=== PATIENT | female | born 1970 | race Asian ===

== ENCOUNTER 2017-02-04 12:51 | Outpatient (CLI) | payer OTHER ==
--- NOTE | 2017-02-04 17:25 | MMO ---
BILATERAL MAMMOGRAMS: HISTORY: Screening mammography. COMPARISON: 06/01/2013 and 06/13/2015. FINDINGS: Heterogeneously dense fibroglandular tissue is again demonstrated. There is no dominant mass or alberto picious calcification. The study was evaluated with the assistance of computer-aided detection. IMPRESSION: BI-RADS category 1. Negative. Suggest routine followup. POS: ANDREIA
== END 2017-02-04 12:52 | disposition home or self-care (01) ==
LOC: MAMMO 12:51
PROVIDERS: ATTEND Obstetrics & Gynecology
DX: Z12.31 Encounter for screening mammogram for malignant neoplasm of breast (principal)
CPT/HCPCS: 77067; G0202

== ENCOUNTER 2018-02-17 15:04 | Outpatient (CLI) | payer OTHER | END 2018-02-17 15:05 | disposition home or self-care (01) | LOC: BICMAMMO 15:04 | PROVIDERS: ATTEND Family Medicine | DX: Z12.31 Encounter for screening mammogram for malignant neoplasm of breast (principal) | CPT/HCPCS: 77063; 77067 ==

== ENCOUNTER 2019-06-01 12:36 | Outpatient (CLI) | payer OTHER ==
--- NOTE | 2019-06-01 13:38 | MMO ---
Bilateral MAMMO Bilat Screen [facility]. CLINICAL HISTORY: Patient is 48 years old and is seen for screening. VIEWS: The views performed were: . FILMS COMPARED: The present examination has been compared to a prior imaging study performed at [facility] on 02/17/2018. This study has been interpreted with the assistance of computer-aided detection. MAMMOGRAM FINDINGS: The breasts are heterogeneously dense, which could obscure a lesion on mammography. There are no suspicious masses, suspicious calcifications, or new areas of architectural distortion. IMPRESSION: THERE IS NO MAMMOGRAPHIC EVIDENCE OF MALIGNANCY. A ROUTINE FOLLOW-UP MAMMOGRAM IN 1 YEAR IS RECOMMENDED. THE RESULTS OF THIS EXAM WERE SENT TO THE PATIENT. ACR BI-RADS Category 1 - Negative MAMMOGRAPHY NOTE: 1. A negative mammogram report should not delay a biopsy if a dominant of clinically suspicious mass is present. 2. Approximately 10% to 15% of breast cancers are not detected by mammography. 3. Adenosis and dense breasts may obscure an underlying neoplasm. Reported by: NUBIA PRINCE MD Electonically Signed: [id number]
== END 2019-06-01 12:37 | disposition home or self-care (01) ==
LOC: BICMAMMO 12:36
PROVIDERS: ATTEND Family Medicine
DX: Z12.31 Encounter for screening mammogram for malignant neoplasm of breast (principal)
CPT/HCPCS: 77063; 77067

== ENCOUNTER 2019-06-03 07:10 | Outpatient (CLI) | payer OTHER ==
[2019-06-03] MEDS ORDERED: Iopamidol 370 76% 100 ML VIAL ONE (10:00)
--- NOTE | 2019-06-03 10:32 | CT ---
CT OF THE ABDOMEN AND PELVIS WITHOUT AND WITH CONTRAST: COMPARISON: None. HISTORY: Hematuria. TECHNIQUE: Multiple contiguous axial images were obtained in a CT of the abdomen and pelvis without and with IV contrast. Post contrast images were obtained in nephrographic and expiratory phases. Sagittal and c oronal reformats were performed. FINDINGS: There are bilateral nonobstructing calcifications in both kidneys. The calcification in the left kid sam appears to represent a collecting system calcification measuring approximately 5 mm in size. The calcification in the right kidney is in the dependent aspect of a cystic structure measuring 2.0 cm in size. This calcification measures 8 mm in greatest dimension. This likely represents a calyceal diverticulum containing a calcification as this cystic structure slightly fills with contrast on the post contrast images but is separate from the normal renal collecting system. The liver, gallbladder, adrenal glands, spleen, and pancreas are unremarkable. No free air, free flu id, or stranding changes are seen in the abdomen or pelvis. An IUD is seen in the uterus. The large and small bowel are unremarkable. The appendix is normal. No abdominal or pelvic lymphadenopathy a re seen. The osseous structures, visualized inferior thorax, and abdominal wall soft tissues are unremarkable. IMPRESSION: 1. 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 2. Small nonobstructing left renal calcification. POS: C
== END 2019-06-03 07:11 | disposition home or self-care (01) ==
LOC: CT 07:10
PROVIDERS: ATTEND Urology
DX: N20.0 Calculus of kidney (principal); R31.0 Gross hematuria; N28.89 Other specified disorders of kidney and ureter
CPT/HCPCS: 74178; Q9967

== ENCOUNTER 2020-07-18 13:21 | Outpatient (CLI) | payer OTHER | END 2020-07-18 13:22 | disposition home or self-care (01) | LOC: BICMAMMO 13:21 | PROVIDERS: ATTEND Family Medicine | DX: Z13.820 Encounter for screening for osteoporosis (principal); Z78.0 Asymptomatic menopausal state; M85.852 Other specified disorders of bone density and structure, left thigh | CPT/HCPCS: 77080 ==

== ENCOUNTER 2020-08-01 14:46 | Outpatient (CLI) | payer OTHER ==
[~2020-08-01 14:46] MED LIST: Iopamidol 370 76% 100 ML VIAL ONE
== END 2020-08-01 14:47 | disposition home or self-care (01) ==
LOC: CT 14:46
PROVIDERS: ATTEND Urology
DX: N20.0 Calculus of kidney (principal); R31.0 Gross hematuria; N28.89 Other specified disorders of kidney and ureter
CPT/HCPCS: 74178; Q9967

== ENCOUNTER 2020-08-24 07:38 | Outpatient (CLI) | payer OTHER ==
[2020-08-24 10:09] LABS: Mean Corpuscular HGB CONC 33.2 g/dL (32.0-36.0); Mean Corpuscular Volume 90.1 fl (81.6-98.3); Mean Platelet Volume 8.9 fl (7.4-10.4); Platelet Count 303 10x3/uL (150-450); RBC Distribution Width 12.9 % (11.5-14.5); Red Blood Cell (RBC) Count 4.34 10x6/uL (3.90-5.03); White Blood Cell (WBC) Count 7.9 10x3/uL (3.5-10.5)
[2020-08-24 10:28] LABS: Anion Gap 13 mmol/L (10-20); BUN (Urea Nitrogen) 12 mg/dL (9.8-20.1); Calc. Creatinine Clearance 0 mL/min (70-130); Calcium 9.4 mg/dL (7.8-10.44); Carbon Dioxide 27 mmol/L (22-29); Chloride 102 mmol/L (98-107); Glucose 83 mg/dL (70-105); Potassium 4.4 mmol/L (3.5-5.1); Sodium 138 mmol/L (136-145)
[2020-08-24 10:30] LABS: PTT 26.5 sec (22.0-33.0)
[2020-08-24 17:53] LABS: SARS-CoV-2 PCR by NAA Not Detected (NotDetected)
== END 2020-08-24 07:39 | disposition home or self-care (01) ==
LOC: LABBT 07:38
PROVIDERS: ATTEND Urology
DX: Z01.818 Encounter for other preprocedural examination (principal); N39.0 Urinary tract infection, site not specified; N20.0 Calculus of kidney; R31.29 Other microscopic hematuria; R31.0 Gross hematuria; N28.89 Other specified disorders of kidney and ureter; Z20.822 Contact with and (suspected) exposure to COVID-19
CPT/HCPCS: 80048; 85027; 85610; 85730; 87635; 93005; 93010; U0003; U0005

== ENCOUNTER 2020-08-29 05:54 | Day surgery (SDC) | payer OTHER ==
[2020-08-28 12:33] VITALS: BMI 23.5
[2020-08-29] MEDS ORDERED: Levofloxacin 500 mg/D5W 100 ml Premix Bag ONE (06:38)
[2020-08-29] MEDS ORDERED: Fentanyl 100 MCG/2 ML VIAL ONE (06:47)
[2020-08-29] MEDS ORDERED: Midazolam HCl 2 mg/2 ml Vial ONE (06:47)
[2020-08-29] MEDS ORDERED: Iothalamate Meglumine 60% 50 ML VIAL FS ONE (06:56)
[2020-08-29] MEDS ORDERED: diphenhydrAMINE 50 MG/ML VIAL ONE (07:09)
[2020-08-29] MEDS ORDERED: Hydrocortisone Sod Succ/PF 100 mg/2 ml Vial ONE (07:19)
[2020-08-29] MEDS ORDERED: Hydrocortisone Sod Succ/PF 100 mg/2 ml Vial IVP SCH (07:30)
[2020-08-29] MEDS ORDERED: Lidocaine 2% Jelly 5 ML TUBE ONE (08:30)
[2020-08-29] MEDS ORDERED: PHENYLEPHRINE-NS 100 MCG/ML 10 ML SYRINGE ONE (08:40)
[2020-08-29] MEDS ORDERED: Glycopyrrolate 0.2 MG/ML 5 ML SYRINGE ONE (08:40)
[2020-08-29] MEDS ORDERED: Dexamethasone 20 MG/5 ML VIAL ONE (08:40)
[2020-08-29] MEDS ORDERED: Ondansetron PF 4 MG/2 ML Vial ONE (08:40)
[2020-08-29] MEDS ORDERED: PROPOFOL 200 MG/20 ML VIAL ONE (08:40)
[2020-08-29] MEDS ORDERED: Lidocaine 1% PF 5 ML VIAL ONE (08:40)
[2020-08-29] MEDS ORDERED: Ketorolac Tromethamine 30 MG/ML VIAL ONE (08:40)
[2020-08-29] MEDS ORDERED: Rocuronium Bromide 10 MG/ML (10ML VIAL) ONE (08:40)
[2020-08-29] MEDS ORDERED: Ioversol 68 % 50 ML VIAL ONE (08:52)
[2020-08-29] MEDS ORDERED: Phenazopyridine HCl 100 MG TAB ONE (10:25)
[2020-08-29] MEDS ORDERED: Oxybutynin 5 MG TAB ONE (10:25)
== END 2020-08-29 10:45 | disposition home or self-care (01) ==
LOC: SDC 05:54
PROVIDERS: ATTEND Urology
PROC: 0T768DZ Dilation of Right Ureter with Intraluminal Device, Via Natural or Artificial Opening Endoscopic (ICD-10-PCS; principal; 2020-08-29)
DX: N20.0 Calculus of kidney (principal); N28.89 Other specified disorders of kidney and ureter; Z79.899 Other long term (current) drug therapy; Z91.041 Radiographic dye allergy status
CPT/HCPCS: 74018; 74420; J1100; J1200; J1720; J1885; J1956; J2250; J2405; J2704; J3010; Q9961; Q9967

== ENCOUNTER 2021-11-15 12:36 | Outpatient (CLI) | payer BC | END 2021-11-15 12:37 | disposition home or self-care (01) | LOC: BICMAMMO 12:36 | PROVIDERS: ATTEND Family Medicine | DX: Z12.31 Encounter for screening mammogram for malignant neoplasm of breast (principal) | CPT/HCPCS: 77063; 77067 ==